=== PATIENT | male | born 1990 | race Caucasian/White ===

== ENCOUNTER 2019-08-28 21:43 | Emergency (ER) | payer MEDICAID, OTHER ==
[2019-08-28] MEDS ORDERED: Azithromycin 250 MG Tab ONE (22:00)
[2019-08-28] MEDS ORDERED: Benzonatate 100 MG Cap ONE (22:00)
--- NOTE | 2019-08-28 22:01 | EDM.PDOC ---
ED HPI GENERAL MEDICAL PROBLEM - General Chief Complaint: Respiratory Problem Stated Complaint: chest congestion, SOB Time Seen by Provider: 08/28/19 21:50 Source of Information: Reports: Patient History Limitations: Reports: No Limitations - History of Present Illness INITIAL COMMENTS - FREE TEXT/NARRATIVE: 29 yo male presents with cough congestion, fever and not feeling well. He has been coughing for quite some time, he does smoke and has smoked since about 2011. He started running a fever and worse, suddenly today. ED ROS GENERAL - Review of Systems Review Of Systems: See Below Constitutional: Reports: Fever HEENT: Reports: Throat Pain Respiratory: Reports: Cough. Denies: Shortness of Breath, Sputum ED EXAM, GENERAL - Physical Exam Exam: See Below Exam Limited By: No Limitations General Appearance: Alert, No Apparent Distress Ears: Normal External Exam, Normal Canal, Hearing Grossly Normal Throat/Mouth: Normal Voice, No Airway Compromise Head: Atraumatic Neck: Normal Inspection, Supple, Non-Tender Respiratory/Chest: No Respiratory Distress, Lungs Clear, Normal Breath Sounds Cardiovascular: Regular Rate, Rhythm, No Edema Neurological: Alert, Oriented, Normal Cognition Psychiatric: Normal Affect, Normal Mood Skin Exam: Warm, Dry, Normal Color Course - Orders/Labs/Meds Orders: Active Orders 24 hr Category Date Time Status Chest 1V Frontal [CR] Stat Exams 08/28/19 22:01 Ordered Labs: Laboratory Tests 08/28/19 Range/Units 22:00 WBC 10.6 (4.0-11.0) K/uL RBC 5.13 (4.50-6.50) M/uL Hgb 14.5 (13.0-18.0) g/dL Hct 43.8 (40.0-54.0) % MCV 85 (76-96) fL MCH 28.3 (27.0-32.0) pg MCHC 33.1 (31.0-35.0) g/dL RDW 13.7 (11.0-16.0) % Plt Count 198 (150-400) K/uL MPV 10.0 (6.0-10.0) fL Neut % (Auto) 65.6 (45.0-70.0) % Lymph % (Auto) 16.8 L (20.0-40.0) % [place]asper % (Auto) 12.9 H (3.0-10.0) % Eos % (Auto) 4.2 (1.0-5.0) % Baso % (Auto) 0.5 (0.0-0.5) % Neut # (Auto) 6.94 (2.00-7.50) K/uL Lymph # (Auto) 1.78 (1.50-4.00) K/uL Jasper # (Auto) 1.37 H (0.20-0.80) K/uL Eos # (Auto) 0.44 H (0.04-0.40) K/uL Baso # (Auto) 0.05 (0.02-0.10) K/uL Departure - Departure Time of Disposition: 22:33 Disposition: Home, Self-Care 01 Condition: Good Clinical Impression: Acute bronchitis - Discharge Information *PRESCRIPTION DRUG MONITORING PROGRAM REVIEWED*: Not Applicable *COPY OF PRESCRIPTION DRUG MONITORING REPORT IN PATIENT ANABELL: Not Applicable Forms: ED Department Discharge Sepsis Event Note - Focused Exam Date Exam was Performed: 08/28/19 Time Exam was Performed: 22:33 - My Orders Last 24 Hours: My Active Orders 08/28/19 22:01 Chest 1V Frontal [CR] Stat - Assessment/Plan Last 24 Hours: My Active Orders 08/28/19 22:01 Chest 1V Frontal [CR] Stat Plan: Counseled on acute bronchitis: Will treat with Azithromycin X 5 days with his hx of smoking. Reveiwed chest x-ray and lab results. Negative influenza. Symptoms may persist for a few weeks. Rest, adequate fluids, tylenol and cough medicine as needed. Tessalon Perles 100 mg po tid prn as needed for cough. Recommend not chewing and adverse side effects. RTC or ER if symptoms worsen.
--- NOTE | 2019-08-29 10:00 | CR ---
Date of Service: 08/28/19 Clinical Data: cough AP CHEST: No priors. The patient has taken a poor inspiration. The heart size is normal. The lungs are clear. No pneumothorax. No pleural effusions. No evidence of acute intrathoracic disease. [id number] MTDD
== END 2019-08-28 22:37 | disposition home or self-care (01) ==
LOC: LB.ED 21:43
DX: J20.9 Acute bronchitis, unspecified (principal)
CPT/HCPCS: 36415; 71045; 85025; 87804; 87804-59; 99283-25; A9270-GY